=== PATIENT | female | born 1995 ===

== ENCOUNTER → 2017-07-16 | Emergency (ER) | payer OTHER ==
[~2017-07-16] VITALS: Ht 157.5 cm; Wt 54.4 kg
[~2017-07-16] MED LIST: ZANTAC 7575 MG; ZYRTEC10 M3
== END | disposition home or self-care (01) ==
LOC: ER 17:37
DX: R10.32 Left lower quadrant pain (principal); K59.09 Other constipation; N39.0 Urinary tract infection, site not specified; R82.79 Other abnormal findings on microbiological examination of urine